=== PATIENT | female | born 1970 ===

== ENCOUNTER 2020-07-13 15:15 | Emergency (ER) | payer SELFPAY ==
[~2020-07-13] VITALS: Ht 160 cm; Wt 58.0 kg
--- NOTE | 2020-07-13 15:42 | NUR ---
PHYSICIST [facility] WATCHING PT WHILE IM WITH ANOTHER PT.
[2020-07-13] MEDS ORDERED: LACTATED RINGERS 1,000 ML IV SCH (15:45)
[2020-07-13 16:06] LABS: BASOPHILS # (AUTO) 0.1 10^3/uL (0.0-0.1); BASOPHILS % (AUTO) 1 % (0-10); EOSINOPHILS # (AUTO) 0.1 10^3/uL (0.0-0.3); EOSINOPHILS % (AUTO) 2 % (0-10); HEMATOCRIT 39 % (35-52); HEMOGLOBIN 12.9 g/dL (11.5-16.0); LYMPHOCYTES # (AUTO) 2.2 10^3/uL (1.0-4.0); LYMPHOCYTES % (AUTO) 30 % (12-44); MEAN CORPUSCULAR HEMOGLOBIN 30 pg (25-34); MEAN CORPUSCULAR HGB CONC 33 g/dL (32-36); MEAN CORPUSCULAR VOLUME 92 fL (80-99); MEAN PLATELET VOLUME 11.8 fL (9.0-12.2); MONOCYTES # (AUTO) 0.5 10^3/uL (0.0-1.0); MONOCYTES % (AUTO) 7 % (0-12); NEUTROPHILS # (AUTO) 4.5 10^3/uL (1.8-7.8); NEUTROPHILS % (AUTO) 61 % (42-75); PLATELET COUNT 234 10^3/uL (130-400); WHITE BLOOD COUNT 7.4 10^3/uL (4.3-11.0)
--- NOTE | 2020-07-13 16:10 | ED Back Pain ---
General Chief Complaint: General Problems/Pain Stated Complaint: SHAKEY Nursing Triage Note: ARRIVED VIA AMB TO ROOM 03. LANGUAGE LINE USED. PT WITH COMPLANTS OF BLOOD SUGARS BEING ABOVE 400 X4 MONTHS. ALSO COMPLAINS OF TREMMORS AND SWEATING. Nursing Sepsis Screen: No Definite Risk Source of Information: Patient Exam Limitations: No Limitations History of Present Illness Date Seen by Provider: Jul 13, 2020 Time Seen by Provider: 15:40 Initial Comments This 50-year-old Uzbek speaking female comes in to the ER because of shaking that has been going on for the past couple months. She has a history of diabetes and is taking her medications however her blood sugars been running high, and says it has been running in the 400s. She says she also has right arm pain, feels like her heart is beating really fast, she denies chest pain. She said she had total bid within the first week of it coming to the country when she was in [place]. Since having Covid she says she has had right lower back pain that comes and goes. She uses the [facility] pharmacy and currently does not have a primary care provider. Audio hot pipe gauger was used during the course of the interview. Timing/Duration: Getting Worse, Intermittent Associated Symptoms: weakness Allergies and Home Medications Allergies Coded Allergies: No Known Drug Allergies (Unverified , 07/13/20) Patient Home Medication List Home Medication List Reviewed: Yes Review of Systems Constitutional: No chills; diaphoresis, dizziness; No fever Respiratory: No cough, No dyspnea on exertion Cardiovascular: No chest pain, No edema; palpitations, syncope Gastrointestinal: No abdominal pain, No nausea, No vomiting Musculoskeletal: back pain (lower back pain that has been present since having Covid. Pain is intermittent) Past Yizrukf-Csjedw-Utyuic Hx Patient Social History Recent Foreign Travel: No Contact w/Someone Who Travel: No Recent Infectious Disease Expo: No Recent Hopitalizations: No Seasonal Allergies Seasonal Allergies: No Past Medical History Surgeries: Yes Breast Respiratory: Yes (COVID EARLY SPRING) Neurological: No Genitourinary: No Gastrointestinal: No Musculoskeletal: No Endocrine: No HEENT: No Cancer: No Psychosocial: No Physical Exam Vital Signs Vital Signs - First Documented 07/13/20 15:20 Temp 35.2 Pulse 81 Resp 16 B/P (MAP) 119/78 (92) Pulse Ox 98 O2 Delivery Room Air Capillary Refill : Less Than 3 Seconds Height, Weight, BMI Height: '" Weight: lbs. oz. kg; 22.00 BMI Method: General Appearance: No Apparent Distress, WD/WN, Anxious HEENT: PERRL/EOMI Cardiovascular: Regular Rate, Rhythm, No Edema, No Gallop, No JVD, No Murmur, Normal Peripheral Pulses Respiratory: Chest Non Tender, Lungs Clear, Normal Breath Sounds, No Accessory Muscle Use, No Respiratory Distress Extremity: Normal Capillary Refill, Normal Inspection, Non Tender Neurologic/Psychiatric: Alert, Oriented x3, Normal Mood/Affect Skin: Normal Color, Warm/Dry Progress/Results/Core Measures Results/Orders Lab Results Laboratory Tests Test 07/13/20 13:50 07/13/20 15:59 07/13/20 16:03 07/13/20 17:21 Range/Units White Blood Count 7.4 4.3-11.0 10^3/uL Red Blood Count 4.24 3.80-5.11 10^6/uL Hemoglobin 12.9 11.5-16.0 g/dL Hematocrit 39 35-52 % Mean Corpuscular Volume 92 80-99 fL Mean Corpuscular Hemoglobin 30 25-34 pg Mean Corpuscular Hemoglobin Concent 33 32-36 g/dL Red Cell Distribution Width 14.0 10.0-14.5 % Platelet Count 234 130-400 10^3/uL Mean Platelet Volume 11.8 9.0-12.2 fL Immature Granulocyte % (Auto) 0 % Neutrophils (%) (Auto) 61 42-75 % Lymphocytes (%) (Auto) 30 12-44 % Monocytes (%) (Auto) 7 0-12 % Eosinophils (%) (Auto) 2 0-10 % Basophils (%) (Auto) 1 0-10 % Neutrophils # (Auto) 4.5 1.8-7.8 10^3/uL Lymphocytes # (Auto) 2.2 1.0-4.0 10^3/uL Monocytes # (Auto) 0.5 0.0-1.0 10^3/uL Eosinophils # (Auto) 0.1 0.0-0.3 10^3/uL Basophils # (Auto) 0.1 0.0-0.1 10^3/uL Immature Granulocyte # (Auto) 0.0 0.0-0.1 10^3/uL Sodium Level 140 135-145 MMOL/L Potassium Level 4.0 3.6-5.0 MMOL/L Chloride Level 107 98-107 MMOL/L Carbon Dioxide Level 20 L 21-32 MMOL/L Anion Gap 13 5-14 MMOL/L Blood Urea Nitrogen 13 7-18 MG/DL Creatinine 0.77 0.60-1.30 MG/DL Estimat Glomerular Filtration Rate > 60 BUN/Creatinine Ratio 17 Glucose Level 64 L 70-105 MG/DL Calcium Level 8.9 8.5-10.1 MG/DL Corrected Calcium 8.7 8.5-10.1 MG/DL Total Bilirubin 0.4 0.1-1.0 MG/DL Aspartate Amino Transf (AST/SGOT) 13 5-34 U/L Alanine Aminotransferase (ALT/SGPT) 11 0-55 U/L Alkaline Phosphatase 76 40-136 U/L Troponin I < 0.028 <0.028 NG/ML Total Protein 7.3 6.4-8.2 GM/DL Albumin 4.2 3.2-4.5 GM/DL Beta-Hydroxybutyrate (Chem panel) 0.13 0.00-0.27 MMOL/L Thyroid Stimulating Hormone (TSH) 0.86 0.35-4.94 UIU/ML Glucometer 62 L 81 70-110 MG/DL Urine Color YELLOW Urine Clarity CLEAR Urine pH 6.0 5-9 Urine Specific Naper <=1.005 1.016-1.022 Urine Protein NEGATIVE NEGATIVE Urine Glucose (UA) NEGATIVE NEGATIVE Urine Ketones NEGATIVE NEGATIVE Urine Nitrite NEGATIVE NEGATIVE Urine Bilirubin NEGATIVE NEGATIVE Urine Urobilinogen 0.2 < = 1.0 MG/DL Urine Leukocyte Esterase NEGATIVE NEGATIVE Urine RBC (Auto) NEGATIVE NEGATIVE Urine RBC NONE /HPF Urine WBC RARE /HPF Urine Squamous Epithelial Cells 0-2 /HPF Urine Crystals NONE /LPF Urine Bacteria NEGATIVE /HPF Urine Casts NONE /LPF Urine Mucus NEGATIVE /LPF Urine Culture Indicated NO My Orders Orders - KARI RECINOS APRN Ed Iv/Invasive Line Start (07/13/20 15:36) Cbc With Automated Diff (07/13/20 15:36) Thyroid Stimulating Hormone (07/13/20 15:36) Comprehensive Metabolic Panel (07/13/20 15:36) Ekg Tracing (07/13/20 15:36) Ua Culture If Indicated (07/13/20 15:36) Beta Hydroxybutyrate (07/13/20 15:36) Lactated Ringers (Lr 1000 Ml Iv Solution (07/13/20 15:45) Troponin I (07/13/20 15:36) Chest 1 View, Ap/Pa Only (07/13/20 15:36) Accucheck Stat ONCE (07/13/20 16:53) Vital Signs/I&O 07/13/20 07/13/20 15:20 18:28 Temp 35.2 Pulse 81 81 Resp 16 16 B/P (MAP) 119/78 (92) 108/63 Pulse Ox 98 99 O2 Delivery Room Air Room Air Blood Pressure Mean: 92 FSBG Bedside Testing Finger Stick Blood Glucose: 62 Blood Glucose Action Taken: RN AND PROVIDER NOTIFIED Progress Progress Note : Progress Note I have seen and evaluated this 50-year-old female who came to the ER because of episodes of shaking and heart palpitations and reports a history of diabetes. We are doing a workup for tachycardia which will include CBC, CMP, TSH, UA with culture as indicated, chest x-ray, EKG, and troponins. Reviewing her 1 L of lactated Ringer's wide open the a 20-gauge IV in her right forearm. Departure Communication (Admissions) 1498-she does have some relative hypoglycemia here, this can certainly contribute to her episodes of shakiness. She is on metformin 1000 mg will reduce this to 500 mg Impression Primary Impression: Hypoglycemia Disposition: 01 HOME, SELF-CARE Condition: Stable Departure-Patient Inst. Decision time for Depature: 18:02 Referrals: [facility] (PCP/Family) Primary Care Physician Add. Discharge Instructions: Cut your glipizide dose in half. Return to ER for any concerns. Call your doctor on wednesday. All discharge instructions reviewed with patient and/or family. Voiced understan adriane. KARI RECINOS APRN Jul 13, 2020 16:10
[2020-07-13 16:16] LABS: ALBUMIN 4.2 GM/DL (3.2-4.5); CHLORIDE 107 MMOL/L (98-107); SODIUM 140 MMOL/L (135-145)
[2020-07-13 16:17] LABS: CALCIUM 8.9 MG/DL (8.5-10.1)
[2020-07-13 16:18] LABS: GLUCOSE 64 MG/DL (70-105); TOTAL PROTEIN 7.3 GM/DL (6.4-8.2)
[2020-07-13 16:19] LABS: CARBON DIOXIDE 20 MMOL/L (21-32)
[2020-07-13 16:20] LABS: BILIRUBIN,TOTAL 0.4 MG/DL (0.1-1.0)
[2020-07-13 16:22] LABS: ALKALINE PHOSPHATASE 76 U/L (40-136); CREATININE SERUM 0.77 MG/DL (0.60-1.30); GFR ESTIMATED > 60
[2020-07-13 16:23] LABS: BUN/CREATININE RATIO 17
[2020-07-13 16:25] LABS: ALANINE AMINOTRANSFERASE 11 U/L (0-55)
[2020-07-13 16:28] LABS: BILIRUBIN,URINE NEGATIVE (NEGATIVE); CLARITY,URINE CLEAR; COLOR,URINE YELLOW; GLUCOSE, URINE (UA) NEGATIVE (NEGATIVE); KETONES,URINE NEGATIVE (NEGATIVE); LEUKOCYTE ESTERASE ,URINE NEGATIVE (NEGATIVE); NITRITE,URINE NEGATIVE (NEGATIVE); PROTEIN,URINE NEGATIVE (NEGATIVE)
[2020-07-13 16:36] LABS: BACTERIA,URINE NEGATIVE /HPF; SQUAMOUS EPITHELIAL CELL,UR 0-2 /HPF; WBC,URINE RARE /HPF
--- NOTE | 2020-07-13 17:19 | Diagnostic Imaging Report ---
INDICATION: Arrhythmia. EXAMINATION: Portable chest at 4:44 p.m. FINDINGS: Heart size and pulmonary vascularity are normal. Lungs are clear. There are no effusions or pneumothoraces. IMPRESSION: Negative chest. Dictated by: Dictated on workstation # [id number]
--- NOTE | 2020-07-13 18:08 | NUR ---
DAUGHTER BROUGHT IN TO TALK TO KARI ABOUT DISCHARGE PLAN.
[2020-07-13 18:28] VITALS: BP 108/63
== END 2020-07-13 18:31 | disposition home or self-care (01) ==
LOC: ER 15:16
DX: E11.649 Type 2 diabetes mellitus with hypoglycemia without coma (principal); F41.9 Anxiety disorder, unspecified
CPT/HCPCS: 36415; 71045; 80053; 81000; 82010; 82962; 84443; 84484; 85025; 93005

== ENCOUNTER 2021-03-02 12:50 | Emergency (ER) | payer SELFPAY ==
[~2021-03-02] VITALS: Ht 157 cm; Wt 67.0 kg
[2021-03-02 13:00] VITALS: BP 144/89
--- NOTE | 2021-03-02 13:45 | ED Cough/URI ---
General Chief Complaint: Cough/Cold/Flu Symptoms Stated Complaint: PEPPER/SORE THROAT/FEVER EXPOSURE Nursing Triage Note: HEADACHE, FEVER, SORETHROAT, X3 DAYS. STATES SHE HAS BEEN EXPOSED TO COVID. Sepsis Screen: No Definite Risk Source: patient Exam Limitations: no limitations (KARI RECINOS APRN) History of Present Illness Date Seen by Provider: Mar 02, 2021 Time Seen by Provider: 13:54 Initial Comments To ER with headache sore throat fever x3 days. Her daughter has Covid. This patient was vaccinated against Covid 2 weeks ago and she has already had Covid in December. Timing/Duration: constant Severity/Quality: moderate Associated Symptoms: cough (KARI RECINOS APRN) Allergies and Home Medications Allergies Coded Allergies: No Known Drug Allergies (Unverified , 07/13/20) Patient Home Medication List Home Medication List Reviewed: Yes (KARI RECINOS APRN) Review of Systems Review of Systems Constitutional: see HPI EENTM: see HPI Respiratory: no symptoms reported Cardiovascular: no symptoms reported Genitourinary: no symptoms reported Musculoskeletal: no symptoms reported Skin: no symptoms reported Psychiatric/Neurological: No Symptoms Reported (KARI RECINOS APRN) Past Clxxacq-Nasgfi-Nmygjx Hx Patient Social History Alcohol Use: Denies Use Smoking Status: Never a Smoker Recent Infectious Disease Expo: No Recent Hopitalizations: No (KARI RECINOS APRN) Seasonal Allergies Seasonal Allergies: No (KARI RECINOS APRN) Past Medical History Surgeries: Yes Breast Respiratory: Yes (COVID EARLY SPRING) Neurological: No Genitourinary: No Gastrointestinal: No Musculoskeletal: No Endocrine: No HEENT: No Cancer: No Psychosocial: No (KARI RECINOS APRN) Physical Exam Vital Signs - First Documented 03/02/21 13:00 Temp 35.9 Pulse 87 Resp 16 B/P (MAP) 144/89 (107) Pulse Ox 99 (BINU HERRMANN MD) Capillary Refill : Less Than 3 Seconds (KARI RECINOS APRN) Height: '" Weight: lbs. oz. kg; 27.00 BMI Method: General Appearance: WD/WN, no apparent distress Eyes: Bilateral Eye Normal Inspection, Bilateral Eye PERRL, Bilateral Eye EOMI Respiratory: normal breath sounds, no respiratory distress, no accessory muscle use Cardiovascular: regular rate, rhythm, no murmur Gastrointestinal: normal bowel sounds, non tender Extremities: normal range of motion, non-tender Neurologic/Psychiatric: alert, normal mood/affect, oriented x 3 Skin: normal color, warm/dry (KARI RECINOS APRN) Progress/Results/Core Measures Suspected Sepsis Recent Fever Within 48 Hours: Yes Infection Criteria Present: Suspected New Infection New/Unexplained Altered Menta: No Sepsis Screen: No Definite Risk SIRS Temperature: Pulse: 87 Respiratory Rate: 16 Blood Pressure 144 /89 Mean: 107 (KARI RECINOS APRN) Results/Orders Lab Results Laboratory Tests Test 03/02/21 13:07 Range/Units Influenza Type A (RT-PCR) Not Detected Not Detecte Influenza Type B (RT-PCR) Not Detected Not Detecte SARS-CoV-2 RNA (RT-PCR) Not Detected Not Detecte (BINU HERRMANN MD) Vital Signs/I&O 03/02/21 13:00 Temp 35.9 Pulse 87 Resp 16 B/P (MAP) 144/89 (107) Pulse Ox 99 (BINU HERRMANN MD) Vital Signs/I&O Capillary Refill : Less Than 3 Seconds (KARI RECINOS APRN) Blood Pressure Mean: 107 Progress Note : Progress Note I was physically present in the emergency department as attending physician during the care of this patient, but I was not directly involved in this patient's care. (BINU HERRMANN MD) Departure Impression Primary Impression: Viral syndrome Disposition: 01 HOME, SELF-CARE Condition: Stable Departure-Patient Inst. Decision time for Depature: 13:44 (KARI RECINOS APRN) Referrals: [facility] ([place]) Primary Care Physician Patient Instructions: Viral Syndrome (DC) Add. Discharge Instructions: 1. Return to ER for any concerns 2. Follow-up with your doctor next week 3. Do not return to work until you are symptom-free. All discharge instructions reviewed with patient and/or family. Voiced understanding. Work/School Note: Work Release Form Date Seen in the Emergency Department: Mar 02, 2021 Return to Work: Mar 05, 2021 KARI RECINOS APRN Mar 02, 2021 13:45 BINU HERRMANN MD Mar 03, 2021 09:50
== END 2021-03-02 13:50 | disposition home or self-care (01) ==
LOC: EDUNIT# 12:50 → ER 12:52
DX: B34.9 Viral infection, unspecified (principal); Z20.822 Contact with and (suspected) exposure to COVID-19
CPT/HCPCS: 87636; 99282

== ENCOUNTER 2023-02-17 18:28 | Emergency (ER) | payer SELFPAY ==
[~2023-02-17] VITALS: Ht 154 cm; Wt 64.0 kg
[2023-02-17 18:45] VITALS: BP 157/90
--- NOTE | 2023-02-17 19:16 | Diagnostic Imaging Report ---
INDICATION: Knee pain. COMPARISON: None available. TECHNIQUE: Three radiographs of the left knee dated February 17, 2023. FINDINGS: No acute fracture or dislocation. No destructive osseous process. Joint spaces are well-maintained. No significant osteophyte formation. No knee joint effusion. No suspicious radiopaque foreign body. IMPRESSION: Unremarkable examination without acute osseous abnormality. Dictated by: Dictated on workstation # [id number]
--- NOTE | 2023-02-17 19:18 | Diagnostic Imaging Report ---
INDICATION: Shoulder pain. COMPARISON: None available. TECHNIQUE: Three radiographs of the right shoulder dated February 17, 2023. FINDINGS: Mild degenerative changes of the acromioclavicular joint. No acute fracture or dislocation. No destructive osseous process. Glenohumeral relationship is well-maintained. Calcified granuloma within the right lung. No suspicious radiopaque foreign body. IMPRESSION: No acute osseous abnormality with mild degenerative changes present. Dictated by: Dictated on workstation # [id number]
[2023-02-17] MEDS ORDERED: NAPR500T8 PO (19:26)
--- NOTE | 2023-02-17 19:26 | ED Fall/Injury ---
General Chief Complaint: Trauma-Non Activation Stated Complaint: FALL|SHOULDER PAIN|KNEE PAIN Nursing Triage Note: PT FELL WHILE AT WORK 2 WEEKS AGO AND HAS HAD INCREASED PAIN IN RIGHT SHOULDER AND LEFT KNEE SINCE. PT AMB TO TRIAGE AND TO FT 1 WITH NO DIFFICULTY. 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) History of Present Illness Date Seen by Provider: February 17, 2023 Time Seen by Provider: 18:55 Allergies and Home Medications Allergies Coded Allergies: No Known Drug Allergies (Unverified , 07/13/20) Patient Home Medication List Naproxen (Naproxen) 500 Mg Tablet.dr, 500 MG PO BID Prescribed by: MARIA TERESA AKHTAR on 02/17/231925 Past Dkpkarq-Rdqniz-Virvel Hx Patient Social History Tobacco Use?: No Substance use?: No Alcohol Use?: No Pt feels they are or have been: No Immunizations Up To Date Influenza Vaccine Up-to-Date: Yes; Up-to-Date Seasonal Allergies Seasonal Allergies: No Past Medical History Surgeries: Yes Breast Respiratory: Yes (COVID EARLY SPRING) Neurological: No Genitourinary: No Gastrointestinal: No Musculoskeletal: No Endocrine: No HEENT: No Cancer: No Psychosocial: No Physical Exam Vital Signs Vital Signs - First Documented 02/17/23 18:45 Temp 36.7 Pulse 80 Resp 17 B/P (MAP) 157/90 (112) Pulse Ox 99 O2 Delivery Room Air Capillary Refill : Less Than 3 Seconds Height, Weight, BMI Height: '" Weight: lbs. oz. kg; 26.00 BMI Method: Progress/Results/Core Measures Results/Orders My Orders Orders - MARIA TERESA AKHTAR DO Shoulder, Right, 3 Views (02/17/23 19:02) Knee, Left, 3 Views (02/17/23 19:02) Ananda Bandage (02/17/23 19:52) Knee Immobilizer (02/17/23 19:52) Vital Signs/I&O 02/17/23 18:45 Temp 36.7 Pulse 80 Resp 17 B/P (MAP) 157/90 (112) Pulse Ox 99 O2 Delivery Room Air Blood Pressure Mean: 112 Departure Impression Primary Impression: Fall from standing Additional Impressions: Left knee injury Right shoulder injury Disposition: 01 HOME, SELF-CARE Condition: Stable Departure-Patient Inst. Decision time for Depature: 19:25 Referrals: [facility] (PCP/Family) Primary Care Physician Patient Instructions: How to Use an Elastic Bandage, Knee Immobilizer (DC), Knee Pain ED, Preventing Falls ED, Shoulder Pain ED Add. Discharge Instructions: ALTERNATE ICE AND HEAT TO SORE AREAS AT 20 MINUTE INTERVALS FOLLOW UP WITH [facility] THIS WEEK FOR FURTHER CARE--CALL IN THE MORNING TO SCHEDULE AN APPOINTMENT All discharge instructions reviewed with patient and/or family. Voiced understanding. Scripts Naproxen (Naproxen) 500 Mg Tablet. 500 MG PO BID, #20 TAB Prov: MARIA TERESA AKHTAR DO 02/17/23 Work/School Note: Work Release Form Date Seen in the Emergency Department: February 17, 2023 Return to Work: February 19, 2023 MARIA TERESA AKHTAR DO February 17, 2023 19:26
== END 2023-02-17 20:19 | disposition home or self-care (01) ==
LOC: EDUNIT# 18:28 → ER 18:31
DX: S89.92XA Unspecified injury of left lower leg, initial encounter (principal); S49.91XA Unspecified injury of right shoulder and upper arm, initial encounter; Z86.16 Personal history of COVID-19; W18.30XA Fall on same level, unspecified, initial encounter
CPT/HCPCS: 73030; 73562; 99282; L1830